=== PATIENT | female | born 1950 | race Caucasian/White ===

== ENCOUNTER 2019-12-04 10:56 | Emergency (ER) | payer MEDICARE, OTHER ==
[2019-12-04] MEDS ORDERED: BUFFERED LIDOCAINE 10 ML SYRINGE SUBQ STA (11:29)
[2019-12-04] MEDS ORDERED: TETANUS/DIPHTHERIA/PERTUSSIS 0.5 ML SYRINGE IM ONE (11:29)
--- NOTE | 2019-12-04 11:30 | ED Physician Documentation ---
PD HPI UPPER EXT INJURY - Stated complaint Stated Complaint: R HAND INJ - Chief complaint Chief Complaint: Laceration - History obtained from History obtained from: Patient - History of Present Illness Location: Right Type of injury: Fall Where injury occurred: Street (Right-handed woman with unknown tetanus status tripped and fell onto an outstretched right hand and cut her palm on something on the pavement.) Review of Systems Constitutional: reports: Reviewed and negative Cardiac: reports: Reviewed and negative Respiratory: reports: Reviewed and negative PD PAST MEDICAL HISTORY - Present Medications Home Medications: Ambulatory Orders Medication Instructions Recorded Confirmed Hydrocodone/Acetaminophen 1 - 2 each PO Q6H PRN #10 tablet 12/04/19 [Hydrocodon-Acetaminophen 5-325] - Allergies Allergies/Adverse Reactions: Allergies Allergy/AdvReac Type Severity Reaction Status Date / Time No Known Drug Allergies Allergy Verified 12/04/19 11:06 PD ED PE NORMAL - Vitals Vital signs reviewed: Yes - General General: Alert and oriented X 3, No acute distress - Extremities Extremities: Other (There is a 5 cm laceration basically right through the simian crease of the palmar part of the right hand. No distal neurovascular compromise. Tendon function will be assessed after anesthetic.) - Neuro Neuro: Alert and oriented X 3, Normal speech Results - Vitals Vitals: Vital Signs - 24 hr 12/04/19 11:03 Temperature 36.3 C L Heart Rate 79 Respiratory 16 Rate Blood Pressure 169/80 H O2 Saturation 99 Oxygen O2 Source Room air - Rads (name of study) R hand Radiology: EMP read contemporaneously Procedures - Laceration (location) R hand Length in cm: 8 Wound type: Linear, Into subcut fat Neurovascular status: Sensory intact, Motor intact, Vascular intact Tendon involvement: Tendon intact Anesthesia: Lidocaine 1% Wound Preparation: Irrigated copiously NS Skin layer closure: Nylon, Interrupted, Size #-0 - enter number (4-0), Sutures - enter # (22) Other: Tetanus booster given Complexity: Simple - Splint (location) R hand Splint applied by: Tech Type of splint: Fiberglass, Short arm, Volar cock up Other: Patient tolerated well, No complications, Neurovascular intact Departure - Departure Disposition: 01 Home, Self Care Clinical Impression: Laceration Condition: Good Record reviewed to determine appropriate education?: Yes Instructions: ED Laceration All Prescriptions: Hydrocodone/Acetaminophen [Hydrocodon-Acetaminophen 5-325] 1 - 2 each PO Q6H PRN #10 tablet PRN Reason: pain Comments: Come back for any signs of infection which would include: Redness, swelling, drainage, increased pain, or fevers. You can wash it soap and water. Keep it covered and moist with bacitracin ointment which is available over the counter; avoid neosporin. Follow-up with your physician in 14 days for suture removal.
[2019-12-04] MEDS ORDERED: LIDOCAINE 1%-EPI 1:100000 20 ML MDV SUBQ STA (11:33)
--- NOTE | 2019-12-04 11:51 | XRAY Report ---
PROCEDURE: Hand 3 View RT INDICATIONS: hand inj TECHNIQUE: 3 views of the hand(s) acquired. COMPARISON: None FINDINGS: Bones: No fractures or dislocations. No suspicious bony lesions. Mild osteoarthritic changes are n oted throughout right. And wrist joints. Soft tissues: No suspicious soft tissue calcifications. IMPRESSION: No gross acute right hand fracture or dislocation. Right hand and wrist joints osteoarthritis. Reviewed by: Jai Lake MD on 12/04/2019 11:50 AM PDT Approved by: Jai Lake MD on 12/04/2019 11:50 AM PDT Station ID: [id number]
[2019-12-04 12:57] VITALS: BP 142/73
== END 2019-12-04 12:56 | disposition home or self-care (01) ==
LOC: ED 10:56
DX: S61.411A Laceration without foreign body of right hand, initial encounter (principal); W01.0XXA Fall on same level from slipping, tripping and stumbling without subsequent striking against object, initial encounter; Y93.01 Activity, walking, marching and hiking; Y92.410 Unspecified street and highway as the place of occurrence of the external cause; Z23 Encounter for immunization
CPT/HCPCS: 12004; 29125; 90471; 99283

== ENCOUNTER 2021-06-05 12:34 | Outpatient (CLI) | payer MEDICARE, OTHER ==
--- NOTE | 2021-06-05 15:19 | XRAY Report ---
PROCEDURE: Hip w/Pelvis 1V LT INDICATIONS: LEFT HIP PAIN S/P FALL TECHNIQUE: AP pelvis with lateral view(s) of the left hip(s). COMPARISON: None. FINDINGS: Bones: No fractures or dislocations. Pelvic ring appears intact. No suspicious bony lesions. Ther e is mild hip joint space narrowing and periarticular osteophyte formation at the bilateral hip joint s. Soft tissues: The visualized bowel gas pattern is normal. No suspicious soft tissue calcifications. IMPRESSION: Bilateral hip osteoarthritis. No acute fracture. No osseous lesion. If symptoms and/or c linical suspicion for pathology continue, further assessment with repeat plain films, or advanced katina ging (e.g., CT, MRI, or bone scan) is recommended for further assessment. Reviewed by: Kika Chapman MD on 06/05/2021 3:18 PM PST Approved by: Kika Chapman MD on 06/05/2021 3:18 PM PST Station ID: [id number]
== END 2021-06-05 23:59 | disposition home or self-care (01) ==
LOC: DI.N 12:34
PROVIDERS: ATTEND Physician Assistant
DX: M16.0 Bilateral primary osteoarthritis of hip (principal)